=== PATIENT | female | born 1950 | race Caucasian/White ===

== ENCOUNTER 2016-12-25 21:44 | Emergency (ER) | payer MEDICARE, OTHER ==
[~2016-12-25] VITALS: Wt 77.5 kg
[~2016-12-25 21:44] MED LIST: ALPR0.5T6 PO; AMLO-145 PO; BACL10TA PO; BENA40TA41 PO; CLON0.2T5 PO; DICL50TA11 PO; GLIP-95 PO; GLUC1TAB25 PO; HYDR-3498 PO; LOSA25TA5 PO; MET25 PO; METF-480 PO; METO-429 PO; OMEG1CAP90 PO; PRED10TA PO; SITA50TA2 PO
[2016-12-25] MEDS ORDERED: ACETAMINOPHEN 500 MG TAB PO STA (23:31)
[2016-12-26] MEDS ORDERED: CLINDAMYCIN 300 MG INJ IM ONE
[2016-12-26] MEDS ORDERED: IBUPROFEN 200 MG TAB PO ONE
[2016-12-26 00:25] VITALS: BP 163/79; PULSE 90; TEMP 99.4
[2016-12-26] MEDS ORDERED: BACTDS PO (00:29)
[2016-12-26] MEDS ORDERED: CLIN-73 PO (00:29)
[2016-12-26] MEDS ORDERED: IBUP400T22 PO (00:29)
[2016-12-26] MEDS ORDERED: ACET500C5 PO (00:29)
--- NOTE | 2016-12-26 00:43 | ERD ---
ER Documentation Chief Complaint Date/Time DATE: 12/26/16 TIME: 00:37 Chief Complaint redness/swelling right posterior thigh x 3 days. poss insect bite HPI 36-year-old female with a past medical history of hypertension, diabetes, gastritis presents to the ED complaining of redness noticed on her right thigh since 3 days ago. Reports that she possibly could have been bitten by a insect. States that she started to notice a fever earlier today. Denies taking any medicines. Denies any exposure to pets, new use of soaps or detergents or new clothing. Denies others having the same rash. Reports that it is painful and rates it a 5 out of 10. Denies any pruritus. Denies any chills, abdominal pain, nausea, vomiting, chest pain, shortness of breath. Reports normal daily bowel movements. Denies any hematemesis, melena. ROS All systems reviewed and are negative except as per history of present illness. Medications Home Meds Active Scripts Clotrimazole* (Clotrimazole* AF) 1% - 30 Gm Cream.gm., 1 APPLIC TOP BID for 7 Days, TUB Prov:GIGI ORTIZ PA-C 12/28/16 Acetaminophen* (Tylophen*) 500 Mg Capsule, 1 CAP PO Q6H Y for PAIN AND OR ELEVATED TEMP, #20 CAP Prov:AMANDA GUEVARA PA-C 12/26/16 Ibuprofen* (Motrin*) 400 Mg Tab, 400 MG PO Q6, #30 TAB Prov:AMANDA GUEVARA PA-C 12/26/16 Sulfamethoxazole-Trimethoprim* (Bactrim* DS) 800-160 Mg Tab, 1 TAB PO BID for 7 Days, TAB Prov:AMANDA GUEVARA PA-C 12/26/16 Clindamycin Hcl* (Clindamycin Hcl*) 300 Mg Capsule, 300 MG PO TID for 7 Days, CAP Prov:AMANDA GUEVARA PA-C 12/26/16 Sitagliptin* (Januvia*) 50 Mg Tablet, 50 MG PO DAILY for 30 Days, TAB Prov:REBECCA JUNIOR 04/09/15 Prednisone* (Prednisone*) 10 Mg Tab, 10 MG PO DAILY, #15 TAB Prov:REBECCA JUNIOR 04/09/15 Reported Medications Methotrexate* (Methotrexate*) 2.5 Mg Tab, 5.1 MG PO, TAB 04/08/15 Fish Oil/[place]-3 Fatty Acids ([place] 3 Fish Oil 1,000 Mg Cap) 1 Cap Capsule, 1 CAP PO BID 04/08/15 Gluc Monte/Chondro [place] A/Vit C/Mn (Glucosamine Chondroitin Tab) 1 Tab Tablet, 1 TAB PO DAILY 04/08/15 Diclofenac Sodium* (Diclofenac Sodium*) 50 Mg Tablet.dr, 100 MG PO DAILY, TAB 04/08/15 Hydrocodone Bit-Acetaminophen* (Hydrocodone-APAP*) 5-325 Tablet, 1 TAB PO Q6 Y for PAIN LEVEL 1-5, TAB 04/08/15 Baclofen* (Baclofen*) 10 Mg Tablet, 10 MG PO Q8, TAB 04/08/15 Alprazolam* (Alprazolam*) 0.5 Mg Tablet, 0.5 MG PO QHS Y for SLEEP, TAB 04/08/15 Losartan Potassium* (Losartan Potassium*) 25 Mg Tablet, 25 MG PO DAILY, TAB 04/08/15 Benazepril Hcl* (Benazepril Hcl*) 40 Mg Tablet, 40 MG PO DAILY, TAB 04/08/15 Clonidine Hcl* (Clonidine Hcl*) 0.2 Mg Tablet, 0.2 MG PO DAILY, TAB 04/08/15 Metoprolol Tartrate* (Lopressor*) 50 Mg Tab, 50 MG PO BID, TAB 04/08/15 Amlodipine Besylate* (Amlodipine Besylate*) 5 Mg Tablet, 5 MG PO DAILY, TAB 04/08/15 Glipizide* (Glipizide*) 10 Mg Tablet, 10 MG PO DAILY, TAB 04/08/15 Metformin* (Glucophage*) 850 Mg Tablet, 850 MG PO TID 09/06/12 Allergies Allergies: Coded Allergies: No Known Allergy (Unverified , 12/28/16) PMhx/Soc History of Surgery: Yes (hysterectomy) Hx Neurological Disorder: No Hx Respiratory Disorders: No Hx Cardiac Disorders: Yes (hypertension) Hx Psychiatric Problems: No Hx Miscellaneous Medical Probl: Yes (dm2, arthritis, ) Hx Alcohol Use: No Hx Substance Use: No Hx Tobacco Use: No Physical Exam Vitals Vital Signs Date Time Temp Pulse Resp B/P Pulse Ox O2 Delivery O2 Flow Rate FiO2 12/26/16 00:25 99.4 90 163/79 96 Room Air 3/26/17 21:57 101.4 103 20 188/83 99 Physical Exam Const: [id number]-[id number]-lmyszszkm, well-nourished. In no acute distress. Head: Atraumatic, normocephalic Eyes: Normal Conjunctiva without injection. No purulent discharge. ENT: Normal external ear, nose. Moist oropharynx without tonsillar exudates. Non -erythematous pharynx. Uvula midline. No drooling. No trismus. Neck: No cervical midline tenderness. Full range of motion. No meningismus. No cervical lymphadenopathy. No JVD. Resp: Clear to auscultation bilaterally. No wheezing, rhonchi, rales, or crackles. No accessory muscle use. No retractions. Cardio: Regular rate and rhythm. No murmurs, rubs or gallops. Abd: Soft, nontender to palpation, non distended. Normal bowel sounds. No palpable masses. No rebound tenderness. No guarding. Negative McBurney's point. Negative psoas sign. Negative obturator sign. Skin: No petechiae, purpura. Black 1 mm punctate with surrounding erythema, 8 cm in size radiating towards the medial aspect of the inner thigh. Indurated. No fluctuance. No bleeding noted. No purulent discharge noted. Back: No midline tenderness. No CVA tenderness. Ext: No cyanosis, or edema. Neur: Awake and alert. Normal gait. Normal coordination. Psych: Normal Mood and Affect Results 24 hrs Current Medications Medications (Trade) Dose Ordered Sig/Mary Route PRN Reason Start Time Stop Time Status Last Admin Dose Admin Ibuprofen (Motrin) 400 mg ONCE ONCE PO 12/26/16 00:00 12/26/16 00:01 DC 12/25/16 23:59 Acetaminophen (Tylenol Tab) 500 mg ONCE STAT PO 12/25/16 23:31 12/25/16 23:33 DC 12/25/16 23:59 Clindamycin Phosphate (Cleocin) 600 mg ONCE ONCE IM 12/26/16 00:00 12/26/16 00:01 DC 12/25/16 23:59 Procedures/MDM 66-year-old female with a past medical history of hypertension, diabetes, gastritis presents the ED complaining of erythema and swelling noted on the posterior thigh since 3 days ago. Patient is febrile at 101.4. Ibuprofen and Tylenol was ordered to further downtrend patient's temperature. Patient was treated here in the ED with 600 mg IM clindamycin. Patient likely has cellulitis secondary to an insect bite. No fluctuance noted. No indication for incision and drainage at this time. This case discussed with my supervising physician, Dr. Adames who agreed that patient can be managed on outpatient basis. Low suspicion for sepsis, urticaria, eczema, scabies, tinea infection, gangrene, meningococcemia, SJS/TEN, sepsis, cellulitis, necrotizing fascitis, DVT, fractures, dislocations or other emergent conditions. Discharge medications: Tylenol, Clindamycin, Bactrim, Ibuprofen Follow up with primary care physician in 1-2 days. Instructed patient to return to the ED sooner for any worsening symptoms. Patient's questions were answered. Patient understood and agreed with discharge plan. Patient discharged stable. Departure Diagnosis: Primary Impression: Cellulitis of right lower extremity Condition: Stable Patient Instructions: Cellulitis Referrals: [facility] Usted se allen hecho un examen mdico de control que le indica que no est en mariposa condicin que requiera tratamiento urgente en el Departamento de Emergencia. Un estudio ms profundo y el tratamiento de monte condicin pueden esperar sin ningn riesgo hasta que usted sea atendida/o en el consultorio de monte mdico o mariposa cl salomon. Es responsabilidad suya arreglar mariposa alie para el seguimiento del kathy. MANEJO DE CONDICIONES NO URGENTES EN EL FUTURO 1) Si usted tiene un mdico de atencin primaria: Usted debera llamar a monte mdico de atencin primaria antes de venir al departamento de emergencia. Despus de las horas de consultorio, monte doctor o monte asociado/a est disponible por telfono. El mdico o enfermero de demi en el servicio telefnico puede asesorarle por mel medio para atender el problema, o kathy contrario se puede programar mariposa alie. 2) Si usted no tiene un mdico de atencin primaria: Llame al mdico o clnica de referencia que aparece abajo jaci las horas de consultorio para hacer mariposa alie para que le vean. CLINICAS: [facility] [phone] [facility] [phone] [facility] [phone] [place] [phone] [place] [address] [phone] [facility]. [phone] [address] [facility] [address] [facility] () Usted se allen hecho un examen mdico de control que le indica que no est en mariposa condicin que requiera tratamiento urgente en el Departamento de Emergencia. Un estudio ms profundo y el tratamiento de monte condicin pueden esperar sin ningn riesgo hasta que usted sea atendida/o en el consultorio de monte mdico o mariposa cl salomon. Es responsabilidad suya arreglar mariposa alie para el seguimiento del kathy. MANEJO DE CONDICIONES NO URGENTES EN EL FUTURO 1) Si usted tiene un mdico de atencin primaria: Usted debera llamar a monte mdico de atencin primaria antes de venir al departamento de emergencia. Despus de las horas de consultorio, monte doctor o monte asociado/a est disponible por telfono. El mdico o enfermero de demi en el servicio telefnico puede asesorarle por mel medio para atender el problema, o kathy contrario se puede programar mariposa alie. 2) Si usted no tiene un mdico de atencin primaria: Llame al mdico o condado institucions de referencia que aparece abajo jaci las horas de consultorio para hacer mariposa alie para que le vean. SI USTED NO PUEDE PAGAR PARA BRIANNA UN MEDICO puede ir a: [facility] [address] [place] [address] [facility] [address] [place] [address] [facility] [address] [place] [address] [facility] [address] [place] [address] Additional Instructions: WOUND CHECK:CONSULTE A MONTE MDICO EN 2 bustos para brianna MONTE HERIDA. Regrese a estas instalaciones si no se mejora anibal esperbamos o anibal le dijimos. AMANDA GUEVARA PA-C Dec 26, 2016 00:43
== END 2016-12-26 00:44 | disposition home or self-care (01) ==
LOC: FTE 21:44
DX: L03.115 Cellulitis of right lower limb (principal); I10 Essential (primary) hypertension; E11.9 Type 2 diabetes mellitus without complications; Z79.84 Long term (current) use of oral hypoglycemic drugs
CPT/HCPCS: 96372

== ENCOUNTER 2016-12-28 14:18 | Emergency (ER) | payer MEDICARE, OTHER ==
[~2016-12-28] VITALS: Wt 72.1 kg
[~2016-12-28 14:18] MED LIST changes: +ACET500C5 PO; +BACTDS PO; +CLIN-73 PO; +IBUP400T22 PO
[2016-12-28] MEDS ORDERED: LIDOCAINE 1% (MDV) 20 ML INJ SC ONE (16:30)
--- NOTE | 2016-12-28 16:33 | ERD ---
ER Documentation Chief Complaint Date/Time DATE: 12/28/16 TIME: 16:29 Chief Complaint rash to inguinal area and abscess to right buttocks not better with abx HPI Patient is a 66-year-old female with a past medical history of diabetes and hypertension who presents to the ED with swelling and redness to her inner thigh. She states that she was here on 12/25/16 and was given IM clindamycin and is currently taking clindamycin and Bactrim at home. However she states that the pain has increased and the redness is spreading. She denies fever or chills. Denies abdominal pain, nausea, vomiting or diarrhea. She also states that she has a right inguinal rash 3 weeks. She states that it is itchy and not drainage. And denies pain. Denies leg pain or swelling. Denies recent travel or recent surgeries. Denies polyuria, polyphagia or polydipsia. Denies headache or dizziness. No other complaints. ROS All systems reviewed and are negative except as per history of present illness. Medications Home Meds Active Scripts Clotrimazole* (Clotrimazole* AF) 1% - 30 Gm Cream.gm., 1 APPLIC TOP BID for 7 Days, TUB Prov:GIGI ORTIZ PA-C 12/28/16 Acetaminophen* (Tylophen*) 500 Mg Capsule, 1 CAP PO Q6H Y for PAIN AND OR ELEVATED TEMP, #20 CAP Prov:AMANDA GUEVARA PA-C 12/26/16 Ibuprofen* (Motrin*) 400 Mg Tab, 400 MG PO Q6, #30 TAB Prov:AMANDA GUEVARA PA-C 12/26/16 Sulfamethoxazole-Trimethoprim* (Bactrim* DS) 800-160 Mg Tab, 1 TAB PO BID for 7 Days, TAB Prov:AMANDA GUEVARAC 12/26/16 Clindamycin Hcl* (Clindamycin Hcl*) 300 Mg Capsule, 300 MG PO TID for 7 Days, CAP Prov:AMANDA GUEVARAC 12/26/16 Sitagliptin* (Januvia*) 50 Mg Tablet, 50 MG PO DAILY for 30 Days, TAB Prov:REBECCA JUNIOR 04/09/15 Prednisone* (Prednisone*) 10 Mg Tab, 10 MG PO DAILY, #15 TAB Prov:REBECCA JUNIOR 04/09/15 Reported Medications Methotrexate* (Methotrexate*) 2.5 Mg Tab, 5.1 MG PO, TAB 04/08/15 Fish Oil/[place]-3 Fatty Acids ([place] 3 Fish Oil 1,000 Mg Cap) 1 Cap Capsule, 1 CAP PO BID 04/08/15 Gluc Santa/Chondro Santa A/Vit C/Mn (Glucosamine Chondroitin Tab) 1 Tab Tablet, 1 TAB PO DAILY 04/08/15 Diclofenac Sodium* (Diclofenac Sodium*) 50 Mg Tablet.dr, 100 MG PO DAILY, TAB 04/08/15 Hydrocodone Bit-Acetaminophen* (Hydrocodone-APAP*) 5-325 Tablet, 1 TAB PO Q6 Y for PAIN LEVEL 1-5, TAB 04/08/15 Baclofen* (Baclofen*) 10 Mg Tablet, 10 MG PO Q8, TAB 04/08/15 Alprazolam* (Alprazolam*) 0.5 Mg Tablet, 0.5 MG PO QHS Y for SLEEP, TAB 04/08/15 Losartan Potassium* (Losartan Potassium*) 25 Mg Tablet, 25 MG PO DAILY, TAB 04/08/15 Benazepril Hcl* (Benazepril Hcl*) 40 Mg Tablet, 40 MG PO DAILY, TAB 04/08/15 Clonidine Hcl* (Clonidine Hcl*) 0.2 Mg Tablet, 0.2 MG PO DAILY, TAB 04/08/15 Metoprolol Tartrate* (Lopressor*) 50 Mg Tab, 50 MG PO BID, TAB 04/08/15 Amlodipine Besylate* (Amlodipine Besylate*) 5 Mg Tablet, 5 MG PO DAILY, TAB 04/08/15 Glipizide* (Glipizide*) 10 Mg Tablet, 10 MG PO DAILY, TAB 04/08/15 Metformin* (Glucophage*) 850 Mg Tablet, 850 MG PO TID 09/06/12 Allergies Allergies: Coded Allergies: No Known Allergy (Unverified , 12/28/16) PMhx/Soc History of Surgery: Yes (hysterectomy) Hx Neurological Disorder: No Hx Respiratory Disorders: No Hx Cardiac Disorders: Yes (hypertension) Hx Psychiatric Problems: No Hx Miscellaneous Medical Probl: Yes (dm2, arthritis, ) Hx Alcohol Use: No Hx Substance Use: No Hx Tobacco Use: No FmHx Family History: No coronary disease, No diabetes, No other Physical Exam Vitals Vital Signs Date Time Temp Pulse Resp B/P Pulse Ox O2 Delivery O2 Flow Rate FiO2 12/28/16 14:26 98.9 76 21 140/68 98 Physical Exam GENERAL: Well-developed, well-nourished female. Appears in no acute distress. LUNG: Clear to auscultation bilaterally. No rhonchi, wheezing, rales or coarse breath sounds. HEART: Regular rate and rhythm. No murmurs, rubs or gallops. Extremities: Equal pulses bilaterally. No peripheral clubbing, cyanosis or edema. No unilateral leg swelling. Erythema to area of marked inner right thigh. 8 cm. area of fluctuance. inguinal area has thick erythematous rash. no drainage or warmth. no fluctuance or induration. NEUROLOGIC: Alert and oriented. Moving all four extremities. 5/5 strength in all extremities. Normal speech. Steady gait. SKIN: Normal color. Warm and dry. No rashes or lesions. Capillary refill < 2 seconds Results 24 hrs Current Medications Medications (Trade) Dose Ordered Sig/Mary Route PRN Reason Start Time Stop Time Status Last Admin Dose Admin Lidocaine (Xylocaine 1% (Mdv) 20 ml) 20 ml ONCE ONCE SC 12/28/16 16:30 12/28/16 16:31 DC Procedures/MDM ER COURSE: I kept the patient and/or family informed of laboratory and diagnostic imaging results throughout the emergency room course. PROCEDURES Abscess Incision and Drainage with irrigation by and KENNEDI Martinez Location: right inner thigh Anesthesia: [Local 1% Lidocaine] Technique: [Irrigated. Disrupted loculations w/ instrumentation ] Packing: [1/4 inch] Complications: [Neurovascularly intact post procedure] 48 hour wound check. Scar minimization instructions given. Patient's skin symptoms have stabilized while they have been evaluated in the department and are appropriate for outpatient care and work up. Exam and w/u not consistent w/ sepsis, deep space infection, or foreign body. MEDICAL DECISION MAKING: This is a 66-year-old female who presents with abscess. Vital signs were reviewed. Patient is afebrile. Patient is not hypoxic. Low suspicion for necrotizing fasciitis, SJS, toxic epidermal necrolysis, Kawasaki, erythema multiforme, gangrene, scarlet fever, meningococcemia, sepsis, anaphylaxis, sepsis, deep space infection, or foreign body. I do not think patient needs IV antibiotics at this time. DISCHARGE: At this time, patient is stable for discharge and outpatient management with no new complaints during the ER course. Patient was sent home with instructions to return in 2 days for wound check and continue clindamycin and Bactrim.. Patient will be discharged home with instructions to recheck for new or worsening symptoms such as fever, nausea, weakness, LOC and to follow up with primary care in the next 1-2 days. Patient was advised to return to the ER for any new or worsening symptoms. Plan was discussed and patient and/or family understands and agrees. Home instructions were given. Departure Diagnosis: Primary Impression: Abscess Condition: Stable GIGI ORTIZ PA-C Dec 28, 2016 16:33
[2016-12-28] MEDS ORDERED: CLOT30CR24 TOP (17:21)
== END 2016-12-28 17:32 | disposition home or self-care (01) ==
LOC: FTE 14:18
DX: L02.415 Cutaneous abscess of right lower limb (principal); I10 Essential (primary) hypertension; E11.9 Type 2 diabetes mellitus without complications; Z79.84 Long term (current) use of oral hypoglycemic drugs

== ENCOUNTER 2016-12-30 09:31 | Emergency (ER) | payer MEDICARE, OTHER ==
[~2016-12-30] VITALS: Ht 167.6 cm; Wt 59.8 kg
[~2016-12-30 09:31] MED LIST changes: +CLOT30CR24 TOP
[2016-12-30 09:32] VITALS: Ht 167.6 cm; Wt 59.8 kg
--- NOTE | 2016-12-30 10:01 | ERD ---
ER Documentation Chief Complaint Date/Time DATE: 12/30/16 TIME: 09:58 Chief Complaint here for suture removal HPI This is a 66-year-old female who presents to the emergency department today for a wound check of an abscess that she had drained 2 days ago. Patient states she is taking her medication. Denies any fevers or chills. ROS All systems reviewed and are negative except as per history of present illness. Medications Home Meds Active Scripts Clotrimazole* (Clotrimazole* AF) 1% - 30 Gm Cream.gm., 1 APPLIC TOP BID for 7 Days, TUB Prov:GIGI ORTIZ-C 12/28/16 Acetaminophen* (Tylophen*) 500 Mg Capsule, 1 CAP PO Q6H Y for PAIN AND OR ELEVATED TEMP, #20 CAP Prov:AMANDA GUEVARA-C 12/26/16 Ibuprofen* (Motrin*) 400 Mg Tab, 400 MG PO Q6, #30 TAB Prov:AMANDA GUEVARA-C 12/26/16 Sulfamethoxazole-Trimethoprim* (Bactrim* DS) 800-160 Mg Tab, 1 TAB PO BID for 7 Days, TAB Prov:AMANDA GUEVARA-C 12/26/16 Clindamycin Hcl* (Clindamycin Hcl*) 300 Mg Capsule, 300 MG PO TID for 7 Days, CAP Prov:AMANDA GUEVARA-C 12/26/16 Sitagliptin* (Januvia*) 50 Mg Tablet, 50 MG PO DAILY for 30 Days, TAB Prov:REBECCA JUNIOR 04/09/15 Prednisone* (Prednisone*) 10 Mg Tab, 10 MG PO DAILY, #15 TAB Prov:REBECCA JUNIOR 04/09/15 Reported Medications Methotrexate* (Methotrexate*) 2.5 Mg Tab, 5.1 MG PO, TAB 04/08/15 Fish Oil/[place]-3 Fatty Acids ([place] 3 Fish Oil 1,000 Mg Cap) 1 Cap Capsule, 1 CAP PO BID 04/08/15 Gluc Santa/Chondro [place] A/Vit C/Mn (Glucosamine Chondroitin Tab) 1 Tab Tablet, 1 TAB PO DAILY 04/08/15 Diclofenac Sodium* (Diclofenac Sodium*) 50 Mg Tablet.dr, 100 MG PO DAILY, TAB 04/08/15 Hydrocodone Bit-Acetaminophen* (Hydrocodone-APAP*) 5-325 Tablet, 1 TAB PO Q6 Y for PAIN LEVEL 1-5, TAB 04/08/15 Baclofen* (Baclofen*) 10 Mg Tablet, 10 MG PO Q8, TAB 04/08/15 Alprazolam* (Alprazolam*) 0.5 Mg Tablet, 0.5 MG PO QHS Y for SLEEP, TAB 04/08/15 Losartan Potassium* (Losartan Potassium*) 25 Mg Tablet, 25 MG PO DAILY, TAB 04/08/15 Benazepril Hcl* (Benazepril Hcl*) 40 Mg Tablet, 40 MG PO DAILY, TAB 04/08/15 Clonidine Hcl* (Clonidine Hcl*) 0.2 Mg Tablet, 0.2 MG PO DAILY, TAB 04/08/15 Metoprolol Tartrate* (Lopressor*) 50 Mg Tab, 50 MG PO BID, TAB 04/08/15 Amlodipine Besylate* (Amlodipine Besylate*) 5 Mg Tablet, 5 MG PO DAILY, TAB 04/08/15 Glipizide* (Glipizide*) 10 Mg Tablet, 10 MG PO DAILY, TAB 04/08/15 Metformin* (Glucophage*) 850 Mg Tablet, 850 MG PO TID 09/06/12 Allergies Allergies: Coded Allergies: No Known Allergy (Unverified , 12/28/16) PMhx/Soc History of Surgery: No Anesthesia Reaction: No Hx Neurological Disorder: No Hx Respiratory Disorders: No Hx Cardiac Disorders: No Hx Psychiatric Problems: No Hx Miscellaneous Medical Probl: No Hx Alcohol Use: No Hx Substance Use: No Hx Tobacco Use: No Smoking Status: Never smoker Physical Exam Vitals Vital Signs Date Time Temp Pulse Resp B/P Pulse Ox O2 Delivery O2 Flow Rate FiO2 12/30/16 09:32 98.1 78 18 140/78 99 Physical Exam Const: Obese, no acute distress Head: Atraumatic Eyes: Normal Conjunctiva ENT: Normal External Ears, Nose and Mouth. Neck: Full range of motion..~ No meningismus. Resp: Clear to auscultation bilaterally Cardio: Regular rate and rhythm, no murmurs Skin: Right thigh posterior aspect with localized area of erythema. No purulent drainage. Evidence of iodoform packing. Neur: Awake and alert Psych: Normal Mood and Affect Procedures/MDM This is 66-year-old female who presents to the emergency department today for a wound check of an abscess that she had drained 2 days ago. I did remove the iodoform packing. Patient did have a localized area of erythema on physical exam. There is no fluctuance. Patient is afebrile and otherwise well- appearing. Low suspicion for sepsis, SJS, deep space infection at this time. Patient is currently taking clindamycin and Bactrim as prescribed to her 2 days ago. I have instructed the patient continue taking the medication. I have also instructed her return in 48 hours for another wound check. Wound was redressed here in the emergency department At this time the patient is stable for discharge and outpatient management. Patient should follow up with their PCP in the next 1-2 days. They may return to the emergency department sooner for any persistent or worsening of symptoms. Patient understood and agreed with the plan. Departure Diagnosis: Primary Impression: Wound check, abscess Condition: Fair Patient Instructions: Wound Care Additional Instructions: Llame al doctor KARLEE y carlos mariposa MONSERRAT PARA DENTRO DE 1-2 VENEGAS.Dgale a la secretaria que nosotros le instruimos hacer esta monserrat.Avise o llame si santa condicin se empeora antes de la monserrat. Regresa aqui si peor o no mejor. Continue taking antibiotics Keep wound clean and dry Return in 48 hours for a wound check TERRY RAYMOND PA-C Dec 30, 2016 10:01
== END 2016-12-30 10:37 | disposition home or self-care (01) ==
LOC: FTE 09:31
DX: Z48.01 Encounter for change or removal of surgical wound dressing (principal); E11.9 Type 2 diabetes mellitus without complications; Z79.84 Long term (current) use of oral hypoglycemic drugs
CPT/HCPCS: 99281